=== PATIENT | male | born 1960 | race Hispanic/Latino ===

== ENCOUNTER 2018-06-02 19:27 | Emergency (ER) | payer BC ==
--- NOTE | 2018-06-02 20:30 | RAD ---
Chest one view HISTORY: Cough. Fever. COMPARISON: 12/01/2011. FINDINGS: Cardiac silhouette is magnified by projection. Pulmonary vasculature is slightly engorged. Patchy bibasilar medial infiltrates are similar in appearance to the prior exam. No lobar consolidation or evidence of pneumothorax. IMPRESSION: Mild pulmonary vascular congestion. Favored to account for patchy bibasilar infiltrates. If there is ongoing concern for pneumonia. Please consider upright PA and lateral views of the chest in full inspiration.
[2018-06-02] MEDS ORDERED: Ibuprofen 200 MG TAB ONE (20:46)
== END 2018-06-02 21:06 | disposition home or self-care (01) ==
LOC: ERS 19:27
DX: J10.1 Influenza due to other identified influenza virus with other respiratory manifestations (principal); E78.5 Hyperlipidemia, unspecified; I10 Essential (primary) hypertension; Z79.899 Other long term (current) drug therapy
CPT/HCPCS: 71045; 87804

== ENCOUNTER 2023-08-03 12:44 | Outpatient (CLI) | payer OTHER ==
[2023-08-03 14:02] LABS: #Basophils 0.07 10x3/uL (0.0-0.2); #Eosinphils 0.13 10x3/uL (0.0-0.5); #Monocytes 0.72 10x3/uL (0.0-1.1); %Basophils 1.1 % (0.0-2.0); %Lymphocytes 20.5 % (18.0-47.0); %Monocytes 11.1 % (0.0-10.0); %Neutrophils 64.8 % (40.0-75.0); Hemoglobin 14.2 g/dL (13.5-17.5); Mean Corpuscular HGB CONC 34.6 g/dL (32.0-36.0); Mean Corpuscular Hemoglobin 31.2 pg (27.0-33.0); Mean Corpuscular Volume 90.1 fL (81.2-95.1); Mean Platelet Volume 10.1 fL (7.4-10.4); Platelet Count 269 10x3/uL (150-450); RBC Distribution Width 12.9 % (11.5-14.5); Red Blood Cell (RBC) Count 4.55 10x6/uL (4.32-5.72); White Blood Cell (WBC) Count 6.5 10x3/uL (3.5-10.5)
[2023-08-03 14:30] LABS: ALT (SGPT) 38 U/L (8-55); AST (SGOT) 25 U/L (5-34); Albumin 4.5 g/dL (3.4-4.8); Alkaline Phosphatase 97 U/L (40-110); Anion Gap 14 mmol/L (10-20); BUN (Urea Nitrogen) 18 mg/dL (8.4-25.7); Bilirubin, Total 0.8 mg/dL (0.2-1.2); Calc. Creatinine Clearance 0 mL/min (70-130); Calcium 9.7 mg/dL (7.8-10.44); Carbon Dioxide 26 mmol/L (23-31); Chloride 101 mmol/L (98-107); Estimated GFR 99; Globulin 3.3 g/dL (2.4-3.5); Glucose 86 mg/dL (80-115); Potassium 3.9 mmol/L (3.5-5.1); Protein, Total 7.8 g/dL (5.8-8.1); Sodium 137 mmol/L (136-145)
== END 2023-08-03 12:45 | disposition home or self-care (01) ==
LOC: LABBT 12:44
PROVIDERS: ATTEND Surgery
DX: Z01.818 Encounter for other preprocedural examination (principal); D17.1 Benign lipomatous neoplasm of skin and subcutaneous tissue of trunk
CPT/HCPCS: 80053; 85025; 93005; 93010

== ENCOUNTER 2023-08-09 07:43 | Day surgery (SDC) | payer OTHER ==
[2023-08-03 13:12] VITALS: BMI 38.9
[2023-08-09] MEDS ORDERED: Famotidine/PF 20 mg/2ml Vial ONE (09:47)
[2023-08-09] MEDS ORDERED: Bupivacaine 0.25% HCL 30 ML VIAL ONE (09:48)
[2023-08-09] MEDS ORDERED: EPINEPHrine 1 MG/ML VIAL ONE (09:48)
[2023-08-09] MEDS ORDERED: PROPOFOL 20 ML ONE (09:51)
[2023-08-09] MEDS ORDERED: SUCCINYLCHOLINE/SOD CL,ISO/PF 200 MG/10 ML SYRINGE FS ONE (09:52)
[2023-08-09] MEDS ORDERED: fentaNYL 50 mcg/mL 1 mL Vial ONE ×2 (09:52→10:17)
[2023-08-09] MEDS ORDERED: Lidocaine 2% PF 5 ML VIAL ONE (09:52)
[2023-08-09] MEDS ORDERED: CEFAZOLIN 2 GM VIAL ONE (09:54)
[2023-08-09] MEDS ORDERED: Sodium Chloride 0.9% 100 ML ONE (09:55)
[2023-08-09] MEDS ORDERED: Ketorolac Tromethamine 30 MG (1 mL) VIAL ONE (10:18)
[2023-08-09] MEDS ORDERED: Ondansetron PF 4 MG/2 ML Vial ONE (10:18)
[2023-08-09] MEDS ORDERED: ePHEDrine Sulfate 50 MG/10 ML VIAL ONE (10:19)
== END 2023-08-09 13:17 | disposition home or self-care (01) ==
LOC: SDC 07:43
PROVIDERS: ATTEND Surgery
PROC: 0JB70ZZ Excision of Back Subcutaneous Tissue and Fascia, Open Approach (ICD-10-PCS; principal; 2023-08-09)
DX: D17.1 Benign lipomatous neoplasm of skin and subcutaneous tissue of trunk (principal); I10 Essential (primary) hypertension; E78.5 Hyperlipidemia, unspecified; E66.9 Obesity, unspecified; Z68.38 Body mass index [BMI] 38.0-38.9, adult; Z79.899 Other long term (current) drug therapy; Z90.49 Acquired absence of other specified parts of digestive tract
CPT/HCPCS: 88304; A6258; J0171; J0665; J1885; J2001; J2405; J2704; J3010; J3490; S0028

== ENCOUNTER 2023-12-15 12:06 | Outpatient (CLI) | payer OTHER | END 2023-12-15 12:07 | disposition home or self-care (01) | LOC: ULT 12:06 | PROVIDERS: ATTEND Family Medicine | DX: M79.661 Pain in right lower leg (principal) ==